=== PATIENT | female | born 1990 | race Two or more races ===

== ENCOUNTER → 2025-03-27 | Emergency (ER) | payer OTHER ==
[~2025-03-27] VITALS: Ht 172.7 cm; Wt 62.6 kg
[~2025-03-27] MED LIST: GENTAMICIN SULFATE 0.15 MG/DR DROPS 5ML OP ONE; SOD BORATE/BORIC AC/WATER/NACL 120 ML BOTTLE OP ONE
== END | disposition home or self-care (01) ==
LOC: ER 16:07
DX: S05.8X2A Other injuries of left eye and orbit, initial encounter (principal); T65.891A Toxic effect of other specified substances, accidental (unintentional), initial encounter; Y92.89 Other specified places as the place of occurrence of the external cause; Y93.89 Activity, other specified; Y99.9 Unspecified external cause status